=== PATIENT | male | born 2000 | race Caucasian/White ===

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

== ENCOUNTER → 2021-02-12 | Outpatient (REF) | LOC: M LABSMTC 10:42 | PROVIDERS: ATTEND Pediatrics | DX: Z11.52 Encounter for screening for COVID-19 (principal) ==

== ENCOUNTER 2021-03-14 04:50 | Emergency (ER) | payer OTHER ==
[~2021-03-14] VITALS: Ht 177.8 cm; Wt 85.9 kg
[2021-03-14 04:50] VITALS: BP 131/91
[2021-03-14] MEDS ORDERED: KETOROLAC 60MG 2ML VIAL IM ONE (06:20)
[2021-03-14] MEDS ORDERED: CIPR-249 PO (06:35)
[2021-03-14] MEDS ORDERED: PERI0.126 PO (06:35)
--- NOTE | 2021-03-15 14:57 | ED PDOC ---
Post-Departure Follow-Up Called the patient today to stop the antibiotic. I spoke with Dr. Vicente aft er the ER visit and plan to see patient in the office Saturday. No antibiotics needed at this time. WILBERTO CALHOUN PA-C March 15, 2021 14:57
== END 2021-03-14 07:03 | disposition home or self-care (01) ==
LOC: M ED 04:50
DX: T25.022D Burn of unspecified degree of left foot, subsequent encounter (principal); L03.116 Cellulitis of left lower limb; T31.0 Burns involving less than 10% of body surface; X12.XXXD Contact with other hot fluids, subsequent encounter; Y92.9 Unspecified place or not applicable; Y93.9 Activity, unspecified; Y99.0 Civilian activity done for income or pay